=== PATIENT | male | born 1985 | race Caucasian/White ===

== ENCOUNTER → 2022-01-02 15:05 | Outpatient (CLI) | payer BC, SELFPAY ==
[2022-01-02 16:00] LABS: Basophils # 0.1 K/mm3 (0-0.2); Basophils % 2.1 % (0.1-2.0); Eosinophils # 0.3 K/mm3 (0.0-0.4); Eosinophils % 3.7 % (0.1-12.0); Hematocrit 44.3 % (42.0-52.0); Hemoglobin 15.4 g/dL (14.1-18.0); Lymphocytes # 2.2 K/mm3 (0.7-4.5); Lymphocytes % 32.4 % (10-50); Mean Corpuscular HGB Conc 34.8 g/dL (31.8-35.4); Mean Corpuscular Hemoglobin 31.5 pg (27.0-31.2); Mean Corpuscular Volume 90.5 fl (80-94); Mean Platelet Volume 8.8 fl (7.4-10.4); Monocytes # 0.4 K/mm3 (0.1-1.0); Monocytes % 6.1 % (1.7-9.3); Neutrophils # 3.9 K/mm3 (1.8-7.8); Neutrophils % 55.7 % (37.0-80.0); Platelet Count 305 K/mm3 (142-424); Red Cell Distribution Width 13.5 % (11.5-17.5); White Blood Count 6.9 K/mm3 (4.8-10.8)
[2022-01-02 17:19] LABS: Chloride 103 mmol/L (98-107); Sodium 138 mmol/L (136-145)
[2022-01-02 17:20] LABS: Potassium 4.6 mmoL/L (3.5-5.1)
[2022-01-02 17:22] LABS: Alanine Aminotransferase 51 U/L (12-78); Albumin Level 4.7 g/dl (3.5-5.0); Alkaline Phosphatase 61 U/L (38-126); Anion Gap 13.6 mEq/L (5-15); Aspartate Amino Transferase 42 U/L (17-59); Bilirubin,Direct 0.2 mg/dl (0.0-0.4); Bilirubin,Indirect 0.5 mg/dL (0.0-0.9); Bilirubin,Total 0.7 mg/dl (0.2-1.3); Bilirubin,Unconjugated 0.6 mg/dL (0.0-1.1); Blood Urea Nitrogen 13 mg/dl (9-20); Carbon Dioxide 26 mmol/L (22.0-30.0); Cholesterol 220 mg/dl (140-200); Estimated Glomerular Filt Rate 108 ml/min (>60); GFR (African American) 131 ML/MIN (>60); Glucose 98 mg/dl (74-100); Total Protein,Serum 7.6 g/dl (6.3-8.2)
[2022-01-02 17:23] LABS: Magnesium 1.7 mg/dl (1.6-2.3)
[2022-01-02 17:30] LABS: Triglycerides 457 mg/dl (30-150)
[2022-01-02 17:35] LABS: Direct LDL Cholesterol 112.82 mg/dL (100-129)
[2022-01-02 17:39] LABS: Chol/HDL Ratio 5.9 (1-3.5); HDL Cholesterol 37 mg/dl (40-60)
[2022-01-02 17:40] LABS: Free T4 (Free Thyroxine) 0.93 ng/dl (0.78-2.19)
[2022-01-02 17:54] LABS: Thyroid Stimulating Hormone 3.62 uIU/mL (0.465-4.68)
== END ==
PROVIDERS: PCP Nurse Practitioner Family; Visit Provider Nurse Practitioner
DX: R00.2 Palpitations (principal); I10 Essential (primary) hypertension
CPT/HCPCS: 36415; 80048; 80061; 80076; 83735; 84439; 84443; 85025; 93270

== ENCOUNTER → 2022-01-10 07:44 | Outpatient (CLI) | payer BC, SELFPAY ==
--- NOTE | 2022-01-10 07:48 | CA_ITS ---
APPROVED REPORT EXAM: Comprehensive 2D, Doppler, and color-flow Echocardiogram Construction Foreman: Mercedez Beck RVT Ht: 6 ft 3 in Wt: 258lbs BSA: 2.44 BP: 151/88 mmHg Indications: CP,A-FIB,HTN,SOA 2D Dimensions LVOT 2.14 cm (M/F) 1.5-2.5 LA Volume 30.90 mL LA Volume Index 12.66 mL/m2 (M/F) 16-34 M-Mode Dimensions RVDd 2.58 cm (0.9-2.6) LA Diam 4.38 cm (1.9-4.0) LVDd 4.47 cm (3.5-5.7) Ao Diam 3.29 cm (2.0-3.7) LVDs 2.58 cm (3.5-5.7) IVSd 0.80 cm (0.6-1.1) PWd 1.21 cm (0.6-1.1) EF (Teich) 73.50% FS 42.30% EDV (Teich) 91.00 mL TAPSE 2.46 (<1.7) ESV (Teich) 24.10 mL LV Diastology E Decel Time 223.00 (160-240 msec) E/A Ratio 1.7 MED E' 8.10 (< 7 cm/sec) E'/MED E' Ratio 11.09 (>14) LAT E' 11.00 (<10 cm/sec) E/LAT E' Ratio 8.16 (>14) Aortic Valve AO Peak GR. 5.10 mmHg Mitral Valve MV E Max Christiano. 90.00 (40-130 cm/s) MV A Velocity 53.00 (40-130 cm/s) E/A Ratio 1.70 MV Decel. Time 223.00 (160-240 ms) MV PHT 65.00 ms Pulmonary Valve PV Peak Velocity 59.00 (50-150 cm/s) Tricuspid Valve TR P. Velocity 210.00 cm/s RAP Estimate 10.00 mmHg RVSP 27.60 mmHg Left Ventricle Left atrium is mildly enlarged, left ventricle is normal size, mild concentric left ventricular hypertrophy, estimated ejection fraction 55% with no regional wall motion abnormality, diastolic parameters are inconclusive. Right Ventricle Right atrium and right ventricle are normal size and contractility. Aortic Valve Aortic valve is minimally thickened and fibrosed, there is no aortic stenosis or aortic insufficiency. Mitral Valve Mitral valve grossly normal, there is trace mitral regurgitation. Tricuspid Valve Tricuspid valve grossly normal, there is trace tricuspid regurgitation, tricuspid regurgitation jet velocity is inadequate for calculation of the right ventricular systolic pressure. Pulmonic Valve Pulmonic valve is poorly visualized. Great Vessels Aortic root is normal size. Inferior vena cava is poorly visualized. Pericardium No significant pericardial effusion noted. Conclusion 1. Mildly enlarged left atrium, normal left ventricular size, mild concentric left ventricular hypertrophy, estimated ejection fraction 55% with no regional wall motion abnormality, diastolic parameters are inconclusive. 2. Trace mitral and tricuspid regurgitation. 3. No significant pericardial effusion. 4. Inferior vena cava is poorly visualized. Electronically signed by : Toby Downs MD 01/10/2022 19:43:52
--- NOTE | 2022-01-10 07:48 | CA_ITS ---
FINAL REPORT TECHNIQUE: Grayscale, color Doppler and duplex Doppler ultrasound of the kidneys, aorta and renal arteries was performed. Multiple velocities were measured. CLINICAL HISTORY: HTN FINDINGS: Aorta velocity: 101.1 cm/sec Right kidney: 13.1 cm. No evidence of hydronephrosis, mass or stone. Right intrarenal RI: 0.52 Right renal artery velocity: 146 cm/sec. Right RAR (Renal artery-Aortic Ratio): 1.44 Left Kidney: 12.7 cm. No evidence of hydronephrosis, mass or stone. Left intrarenal RI: 0.57 Left renal artery velocity: 120 cm/sec. Left RAR (Renal Artery-Aortic Ratio): 1.19 IMPRESSION: No evidence of significant renal artery stenosis. CT angiogram or postcontrast MR angiogram would be more sensitive for evaluation of possible renal artery stenosis. Reviewed, Interpreted and Dictated by Joan Gusman MD Transcribed by Gracy Mayorga Authenticated by Joan Gusman MD on 01/10/2022 10:44:35 AM [facility]
--- NOTE | 2022-01-10 07:48 | CA_ITS ---
APPROVED REPORT Exam: Exercise Treadmill Technologist: Beatriz Rdz, Ht: 6 ft 3 in Wt: 258 lbs BSA: 2.44 m2 HR: 53 bpm BP: 109/70 mmHg Rhythm: sinus kirti, rightward axis, cannot R/O old inferior HI Medical History Medical History: HTN Medications: Amlodipine,,,,, Metoprolol,,,,, MeLOXICAM,,,,, Sertaline,,,,, Cardiac Risk Factors: HTN Stress Test Details Test: New HR Resting HR: 61 bpm Max Heart Rate (APMHR): 182.817798 bpm Max HR Achieved: 170 bpm Target HR (85% APMHR): 154.662427 bpm % of APMHR: 93.41 Recovery HR: 140 bpm BP Resting BP: 118/76 mmHg Max BP: 156/93 mmHg Recovery BP: 156.0/93.0 mmHg ECG Resting ECG: sinus kirti, rightward axis, cannot R/O old inferior HI Clinical Exercise duration: 13:21 min Highest Stage Achieved: Exercise capacity: 14.8 METs Stress ECG Conclusion During new protocol pt exercised total of 13:21 into stage 5. No CP noted. Rare RVC. Allowing for motion artifact, the ST response to exercise is probably within normal. Normal GXT. GXT only, no imaging. Test Summary Stage 3 01:00 14.0 3.4 107 . . . . REST . . . . . . . Standing REST 04:27 0.0 0.0 61 . 118/ 76 . . Stage 1 01:00 10.0 1.7 81 . . . . Stage 1 02:00 10.0 1.7 82 . . . . Stage 1 03:00 10.0 1.7 84 . 138/ 80 . . Stage 2 01:00 12.0 2.5 91 . . . . Stage 2 02:00 12.0 2.5 96 . . . . Stage 2 03:00 12.0 2.5 98 . 146/ 75 . . Stage 3 01:00 14.0 3.4 107 . . . . Stage 3 02:00 14.0 3.4 109 . . . . Stage 3 03:00 14.0 3.4 113 . 154/ 74 . . Stage 4 01:00 16.0 4.2 123 . . . . Stage 4 02:00 16.0 4.2 132 . . . . Stage 4 03:00 16.0 4.2 137 . . . . Stage 5 01:00 18.0 5.0 151 . . . . Stage 5 01:21 18.0 5.0 155 . . . Stop exercise at 13:21 RECOVERY 01:00 0.0 0.0 129 . . . . RECOVERY 02:00 0.0 0.0 105 . . . . RECOVERY 03:00 0.0 0.0 94 . 156/ 93 . . RECOVERY 04:00 0.0 0.0 89 . 152/ 79 . . RECOVERY 05:00 0.0 0.0 91 . 136/ 80 . . RECOVERY 05:34 0.0 0.0 94 . 136/ 80 . . Electronically signed by : Toby Downs MD 01/10/2022 20:25:22
== END ==
PROVIDERS: PCP Nurse Practitioner Family; Visit Provider Nurse Practitioner Family
DX: R00.2 Palpitations (principal); I10 Essential (primary) hypertension
CPT/HCPCS: 93017; 93306; 93976